=== PATIENT | male | born 1985 | race Caucasian/White ===

== ENCOUNTER 2025-04-12 13:30 | Observation (INO) ==
--- NOTE | 2025-04-12 14:38 | Emergency Department Note ---
History of Present Illness General Chief complaint: Back Injury/Pain Stated complaint: BACK PAIN Time Seen by Provider: 04/12/25 14:13 History of Present Illness Maximum Pain Intensity: 10 This is a 40-year-old male who presents to the emergency department via private vehicle with complaints of "back pain". The patient notes at last he bent down and when he stood up he began with pain in his back area. He points to the middle of the lumbar spine as location of discomfort that also radiate superiorly into the left just inferior to the left shoulder blade. It is worse with a deep breath, movement. It is somewhat better with rest. The patient denies any trauma or injury otherwise. No lower extremity weakness, bowel or bladder incontinence, numbness or tingling in the genital region. Patient denies any preceding or current illness. He denies any fevers, chills, nausea or vomiting. He denies any history of spine surgery. He denies any drug use. Allergies Allergy/AdvReac Type Severity Reaction Status Date / Time No Known Allergies Allergy Unverified 04/12/25 19:17 Past Med/Surg History Problem List (Updated 04/12/25 @ 19:27 by Michael Petty PA-C) Back pain (Acute) Social History Smoking Status: Never smoker Feels Safe at Home: Yes Review of Systems A total of 10 systems reviewed and were otherwise negative Physical Exam Vital Signs Vital Signs - 24 hr 04/12/25 13:39 04/12/25 14:56 04/12/25 16:00 Temperature 36.6 C Temperature Source Oral Pulse Rate 71 Pulse Rate [Finger] 59 L 55 L Respiratory Rate 18 16 17 Respiratory Effort / Characteristics Non-Labored Spontaneous Non-Labored Spontaneous Non-Labored Spontaneous Respiratory Depth Normal Normal Normal Respiratory Pattern Regular Blood Pressure 118/81 Blood Pressure [Right Arm] 125/85 121/78 Blood Pressure Mean 93 Blood Pressure Mean [Right Arm] 98 92 Blood Pressure Position [Right Arm] Lying Semi-fowlers Pulse Oximetry 98 99 97 Oxygen Delivery Method Room Air Room Air Room Air Sepsis Recent Fever Within 48 Hours No Sepsis New/Unexplained Change in Mental Status No Sepsis Action Taken by Nursing No Action Required VITAL SIGNS - Vital signs and nursing notes were reviewed. Stable and afebrile. GENERAL -40-year-old male appearing his stated age who is in no acute distress. Communicates well with provider and answers questions appropriately. SKIN - Without rashes. HEAD - NC/AT. EYES - PERRL with EOMI bilaterally. Sclera anicteric. EARS - No deformities of external structures noted on gross examination bilaterally. NOSE - Midline and without cyanosis. No epistaxis or purulent drainage noted. MOUTH/OROPHARYNX - Without perioral cyanosis. NECK - Neck with FROM. No nuchal rigidity. LUNGS - CTA CARDIAC - RRR ABDOMEN - Abdominal contour normal without pulsations or visible masses. BS normoactive all four quadrants. No tenderness, palpable masses, hepatosplenomegaly, or ascites noted. EXTREMITIES - No clubbing or peripheral cyanosis.+5/5 strength noted in UE/LE bilaterally. NEUROLOGIC - Cranial nerves II through XII grossly intact. Sensory intact to light touch throughout. Patellar reflexes +2/4. MSKthere is no reproducible tenderness to palpation overlying the C, T or L spinous processes or paraspinous musculature. PSYCH -alert, oriented and pleasant on examination Course Administered Medications Discontinued Medications Acetaminophen (Acetaminophen 500 Mg Tab) 500 mg PO NOW STA Stop: 04/12/25 15:22 Last Admin: 04/12/25 15:34 Dose: 500 mg Documented By: CRYSTAL Ketorolac Tromethamine (Ketorolac Tromethamine 15 Mg/Ml Vial) 10 mg IV NOW ONE Stop: 04/12/25 15:33 Last Admin: 04/12/25 15:39 Dose: 10 mg Documented By: CRYSTAL Lidocaine (Lidocaine 5% 1 Patch) 1 patch TD NOW STA Stop: 04/12/25 15:22 Last Admin: 04/12/25 15:33 Dose: 1 patch Documented By: CRYSTAL Morphine Sulfate (Morphine Sulfate 4 Mg/Ml 1 Ml Carp\\Vial) 4 mg IV NOW STA Stop: 04/12/25 14:49 Last Admin: 04/12/25 14:55 Dose: 4 mg Documented By: TNK Morphine Sulfate (Morphine Sulfate 2 Mg/Ml Carp) 2 mg IV NOW STA Stop: 04/12/25 17:28 Last Admin: 04/12/25 17:33 Dose: 2 mg Documented By: JAZMINE Morphine Sulfate (Morphine Sulfate 4 Mg/Ml 1 Ml Carp\\Vial) 4 mg IV NOW STA Stop: 04/12/25 18:47 Last Admin: 04/12/25 18:56 Dose: 4 mg Documented By: KATHRINE Ondansetron HCl (Ondansetron Inj 2 Mg/Ml 2 Ml Vial) 4 mg IV NOW STA Stop: 04/12/25 14:49 Last Admin: 04/12/25 14:55 Dose: 4 mg Documented By: DENZEL Medical Decision Making Laboratory Data 04/12/25 14:43 04/12/25 14:43 Lab Results 04/12/25 04/12/25 Range/Units 14:43 15:32 WBC 5.02 (4.8-10.8) K/ul RBC 5.30 (4.70-6.10) M/uL Hgb 15.6 (14.0-18.0) g/dl Hct 45.2 (42.0-52.0) % MCV 85.3 (80.0-100.0) fL MCH 29.4 (25.0-34.0) pg MCHC 34.5 (32.0-36.0) g/dL RDW Std Deviation 35.8 L (36.4-46.3) fL RDW Coeff of Esequiel 11.7 (11.5-14.5) % Plt Count 203 (130-400) K/uL MPV 9.0 L (9.4-12.4) fL Immature Gran % (Auto) 0.2 % Neut % (Auto) 59.7 % Lymph % (Auto) 28.9 % Dade % (Auto) 9.0 % Eos % (Auto) 1.8 % Baso % (Auto) 0.4 % Neut # (Auto) 3.00 (1.40-6.50) K/uL Lymph # (Auto) 1.45 (1.20-3.40) K/uL Dade # (Auto) 0.45 (0.11-0.59) K/uL Eos # (Auto) 0.09 (0.00-0.50) K/uL Baso # (Auto) 0.02 (0.00-0.20) K/uL Immature Gran # (Auto) 0.01 (0.01-0.20) K/uL ESR 8 (0-15) mm/hr PT 10.3 (9.0-12.0) Seconds INR 0.9 (0.9-1.1) APTT 26 (21-31) Seconds PTT Ratio 1.0 D-Dimer 450 (0-500) ug/L FEU Sodium 139 (136-145) mmol/L Potassium 4.2 (3.5-5.1) mmol/L Chloride 102 (98-107) mmol/L Carbon Dioxide 32 (21-32) mmol/L Anion Gap 5 (3-11) BUN 14 (6-23) mg/dl Creatinine 1.07 (0.6-1.4) mg/dl Est Cr Clr Drug Dosing 96.7 ml/min eGFR 91.09 BUN/Creatinine Ratio 13.1 (10-20) Glucose 80 (70-99(Fasting)) mg/dl Calcium 9.4 (8.6-10.3) mg/dl Total Bilirubin 0.7 (0.2-1.0) mg/dl AST 22 (13-39) U/L ALT 20 (7-52) U/L Alkaline Phosphatase 51 (34-104) U/L Troponin I High Sens 5.6 (0-20) pg/ml C-Reactive Protein < 0.50 (0-0.5) mg/dl Total Protein 7.4 (6.0-8.3) gm/dl Albumin 4.5 (3.4-5.0) gm/dl Globulin 2.9 (2.5-4.0) gm/dl Albumin/Globulin Ratio 1.6 (0.9-2) Urine Color Yellow Urine Appearance Clear (Clear) Urine pH 7.0 (4.5-7.5) Ur Specific [place] 1.014 (1.000-1.030) Urine Protein Negative (Negative) Urine Glucose (UA) Negative (Negative) Urine Ketones Negative (Negative) Urine Blood Negative (Negative) Urine Nitrite Negative (Negative) Urine Bilirubin Negative (Negative) Urine Urobilinogen Negative (Negative) Ur Leukocyte Esterase Negative (Negative) Urine Comment Imaging Data Radiologist's Impression: Chest X-Ray 04/12/25 16:54 Chest radiograph, one view History: Chest pain Comparison: None Findings: Single AP view of the chest performed. No focal consolidation or pleural effusion. No pneumothorax. The cardiomediastinal silhouette is within normal limits. Normal pulmonary vascularity. No evidence for lymphadenopathy. No visualized bony or soft tissue abnormality. Impression: Normal chest radiograph Electronically signed by Brady Díaz 04-12-2025 5:28 PM Orbit X-Ray 04/12/25 17:41 Clinical History: MRI clearance Technique: 3 views of the orbits are submitted for review. Findings: No definite sinus opacification is seen. No fracture is evident. No focal osseous lesion is identified. There are no radiopaque foreign bodies. Impression: No visible foreign body. No contraindication to MRI is seen Electronically signed by Ishan Trujillo 04-12-2025 6:06 PM MDM Narrative Patient was seen and evaluated as above in room D04b. Review was performed of triage nursing notes and vital signs. After obtaining a thorough history and physical examination the above work up was performed. Patient presents to us today for evaluation of low back pain. This is in the inferior aspect of the L- spine that radiates superiorly under the left scapula area. It is worse with movement but also deep breath. There is no chest pain or abdominal pain. No tearing sensation. Options of care were discussed with the patient. IV access was established. Labs were drawn. IV analgesics and antiemetics were ordered. Patient did require several antiemetics during his time here pending workup and evaluation. Labs reveal no leukocytosis or concerning anemia. Coags normal. D-dimer within normal range making PE less likely. There is no evidence of kidney or liver failure. Troponin is within normal range making ACS less likely noting duration of symptoms. ESR and CRP are within normal range. Urinalysis is negative. A chest x-ray was performed and per my interpretation was negative for acute process. Radiology report as above noting normal chest radiograph. CT scans of the thorax with contrast as well as abdomen and pelvis with contrast was reviewed both imaging and report as available from [facility]. This was dated 04/09/2025. Per radiologist findings are: 1. No acute traumatic process within the chest, abdomen or pelvis. A 4 mm nodule abutting left major fissure. Indeterminant but likely benign given the patient's age. Follow-up chest CT 1 year could be performed to ensure stability. Mildly distended bladder. The bladder wall thickening. With the patient having recent CT scans of the chest as well as abdomen/pelvis (for evaluation of these same symptoms) that were rather overall reassuring I do not believe that repeat CT scan imaging is needed here today. However, I do believe that further assessment of the patient's ongoing back pain is warranted via MRI assessment. As the patient does have a history of eye surgery, it was asked by the machining technician that we proceed with clearance via radiographic assessment of the orbits. These were obtained. No radiopaque foreign body or objects noted. Patient case signed out to JENIFER Jenkins at shift change, 1900 hrs. on 04/12/2025. This was pending MRI. At that time patient was medicated with IV analgesia and was at MRI obtaining imaging. I did asked that RN accompany the patient for continuous pulse ox monitoring while in the MRI scanner noting analgesics received here today. I did call to the MRI suite at 1919 and the patient was overall doing well. No issues. Please refer to further documentation regarding the patient's stay. GCS: 15 In the evaluation and treatment of this patient the following differential diagnoses were entertained: Cauda equina syndrome, cord compression, epidural hematoma, abscess, sprain, strain, spinal radiculopathy, among others. Impression & Plan Back pain Discharge Plan Visit Data Chief Complaint: Back Injury/Pain Stated Complaint: BACK PAIN ED Provider: Harpal Quintana ED Midlevel Provider: Tyesha Salinas Discharge Problem: Back pain Patient Disposition: Still a Patient Condition: Good Forms Stand Alone Forms: My [facility] Referrals Referrals: PCP,NO [Primary Care Provider] -
[2025-04-12] MEDS: MoRPHine SULFATE 4 MG/ML 1 ML CARP\\VIAL IV STA ×2 (14:55→18:56)
[2025-04-12] MEDS: ONDANSETRON INJ 2 MG/ML 2 ML VIAL IV STA (14:55)
[2025-04-12 15:01] LABS: Hematocrit (blood only) 45.2 % (42.0-52.0); Hemoglobin 15.6 g/dl (14.0-18.0); Immature Granulocytes # (auto) 0.01 K/uL (0.01-0.20); Immature Granulocytes % (auto) 0.2 %; Mean Corpuscular Hemoglobin 29.4 pg (25.0-34.0); Mean Corpuscular Volume 85.3 fL (80.0-100.0); Platelet Count 203 K/uL (130-400); RDW Standard Deviation 35.8 fL (36.4-46.3); Red Blood Count 5.30 M/uL (4.70-6.10); White Blood Count 5.02 K/ul (4.8-10.8)
[2025-04-12 15:30] LABS: Alanine Aminotransferase 20 U/L (7-52); Albumin Globulin Ratio 1.6 (0.9-2); Alkaline Phosphatase 51 U/L (34-104); Anion Gap 5 (3-11); Bilirubin,Total 0.7 mg/dl (0.2-1.0); Blood Urea Nitrogen 14 mg/dl (6-23); Calcium 9.4 mg/dl (8.6-10.3); Carbon Dioxide 32 mmol/L (21-32); Chloride 102 mmol/L (98-107); Creatinine Clr Calc Pharmacy 96.7 ml/min; Globulin 2.9 gm/dl (2.5-4.0); Glucose 80 mg/dl (70-99(Fasting)); Potassium 4.2 mmol/L (3.5-5.1); Sodium 139 mmol/L (136-145); Total Protein 7.4 gm/dl (6.0-8.3)
[2025-04-12] MEDS: LIDOCAINE 5% 1 PATCH TD STA (15:33)
[2025-04-12] MEDS: ACETAMINOPHEN 500 MG TAB PO STA (15:34)
[2025-04-12] MEDS: KETOROLAC TROMETHAMINE 15 MG/ML VIAL IV ONE (15:39)
[2025-04-12 15:56] LABS: INR 0.9 (0.9-1.1); Partial Thromboplastin Time 26 Seconds (21-31); Prothrombin Time 10.3 Seconds (9.0-12.0)
[2025-04-12 16:01] LABS: Appearance Urine Clear (Clear); Glucose Urine UA Negative (Negative)
--- NOTE | 2025-04-12 17:28 | XRay Report ---
Chest radiograph, one view History: Chest pain Comparison: None Findings: Single AP view of the chest performed. No focal consolidation or pleural effusion. No pneumothorax. The cardiomediastinal silhouette is within normal limits. Normal pulmonary vascularity. No evidence for lymphadenopathy. No visualized bony or soft tissue abnormality. Impression: Normal chest radiograph Electronically signed by Brady Díaz 04-12-2025 5:28 PM
[2025-04-12] MEDS: MoRPHine SULFATE 2 MG/ML CARP IV STA (17:33)
--- NOTE | 2025-04-12 17:56 | Electrocardiogram Report ---
Test Reason : Blood Pressure : */* mmHG Vent. Rate : 64 BPM Atrial Rate : 64 BPM P-R Int : 138 ms QRS Dur : 82 ms QT Int : 368 ms P-R-T Axes : 47 17 41 degrees QTcB Int : 379 ms Normal sinus rhythm Normal ECG No previous ECGs available Confirmed by Brady Hendricks ([id number]) on 04/12/2025 5:56:19 PM Referred By: REFERRED SELF Confirmed By: Brady Hendricks
--- NOTE | 2025-04-12 18:08 | XRay Report ---
Clinical History: MRI clearance Technique: 3 views of the orbits are submitted for review. Findings: No definite sinus opacification is seen. No fracture is evident. No focal osseous lesion is identified. There are no radiopaque foreign bodies. Impression: No visible foreign body. No contraindication to MRI is seen Electronically signed by Ishan Trujillo 04-12-2025 6:06 PM
[2025-04-12] MEDS: REMOVE LIDODERM PATCH SCH (20:19)
--- NOTE | 2025-04-12 21:52 | Magnetic Resonance Report ---
EXAM: MR thoracic spine wo con CLINICAL HISTORY: Mid and low back pain. TECHNIQUE: Multiplanar and multi-sequential MRI sequences of the thoracic spine without contrast administration were obtained. COMPARISON: None. FINDINGS: Intervertebral Discs: Normal height and signal intensity of the intervertebral discs. A few diffuse disc bulges are noted at T4-5 and T5-6 levels without any significant spinal canal or neural foraminal stenosis. No disc desiccation. Spinal Canal and Neural Foramina: The spinal canal is of normal caliber with no evidence of spinal stenosis. Neural foramina are patent bilaterally at all levels. No evidence of nerve root compression. There is no significant disc pathology. No exiting nerve root or spinal cord compression. Normal morphology of the ligamentum flavum. No arthropathy of the uncovertebral and zygapophyseal joints. No significant spinal canal and neural foraminal stenosis. Facet Joints: Normal appearance of the facet joints. No evidence of facet arthropathy or significant degenerative changes. Vertebrae: Normal alignment of the thoracic vertebrae. No fractures, lytic or sclerotic lesions. Normal bone marrow signal intensity. Modic type l changes are noted along the superior endplate of the T10 vertebral body. Mild degenerative changes are noted in the form of marginal osteophyte formation. [id number] analysis: C7-T1: No significant disc pathology. Normal ligamentum flava morphology, no arthropathy of the facet joints, and no significant spinal canal stenosis. T1-T2: No significant disc pathology. Normal ligamentum flava morphology, no arthropathy of the facet joints, and no significant spinal canal stenosis. T2-T3: No significant disc pathology. Normal ligamentum flava morphology, no arthropathy of the facet joints, and no significant spinal canal stenosis. T3-T4: No significant disc pathology. Normal ligamentum flava morphology, no arthropathy of the facet joints, and no significant spinal canal stenosis. T4-T5: A diffuse disc bulge of 1.4 mm is noted indenting the anterior thecal sac. Normal ligamentum flava morphology, no arthropathy of the facet joints, and no significant spinal canal or neural foraminal stenosis. T5-T6: A diffuse disc bulge of 1.9 mm is noted indenting the anterior thecal sac. Normal ligamentum flava morphology, no arthropathy of the facet joints, and no significant spinal canal or neural foraminal stenosis. T6-T7: No significant disc pathology. Normal ligamentum flava morphology, no arthropathy of the facet joints, and no significant spinal canal stenosis. T7-T8: Posterior central disc protrusion measuring 3 mm, indenting ventral cord aspect, with no neural foraminal compromise. Normal ligamentum flava morphology, no arthropathy of the facet joints, and no significant spinal canal stenosis. T8-T9: No significant disc pathology. Normal ligamentum flava morphology, no arthropathy of the facet joints, and no significant spinal canal stenosis. T9-T10: No significant disc pathology. Normal ligamentum flava morphology, no arthropathy of the facet joints, and no significant spinal canal stenosis. T10-T11: No significant disc pathology. Normal ligamentum flava morphology, no arthropathy of the facet joints, and no significant spinal canal stenosis. T11-T12: No significant disc pathology. Normal ligamentum flava morphology, no arthropathy of the facet joints, and no significant spinal canal stenosis. Spinal Cord: Normal signal intensity and morphology of the spinal cord. No evidence of intrinsic cord lesions, syrinx, or abnormal signal changes. Soft Tissues: Normal appearance of the rest of the paraspinal soft tissues. Minimal bilateral pleural effusion. Thoracic Kyphosis: Normal thoracic kyphosis without abnormal curvature. IMPRESSION: 1. No evidence of acute fracture or dislocation. 2. Mild thoracic spondylosis with a few disc bulges as described. No significant spinal canal or neural foraminal stenosis. 3. Posterior central disc protrusion measuring 3 mm, indenting ventral cord aspect, with no neural foraminal compromise. Clinical evaluation is further recommended. 4. Minimal bilateral pleural effusion. Electronically signed by Pool Harris 04-12-2025 9:52 PM
--- NOTE | 2025-04-12 22:14 | Magnetic Resonance Report ---
Exam(s): MRI L SPINE Without Contrast EXAM: MR Lumbar Spine Without Intravenous Contrast CLINICAL HISTORY: Reason for exam: mid and low back pain. TECHNIQUE: Magnetic resonance images of the lumbar spine without intravenous contrast in multiple planes. COMPARISON: No relevant prior studies available. FINDINGS: Vertebrae: Unremarkable. No acute fracture. Spinal cord: Unremarkable. Normal signal. Soft tissues: Unremarkable. DISCS/SPINAL CANAL/NEURAL FORAMINA: L1-L2: Unremarkable. No significant disc disease. No stenosis. L2-L3: Unremarkable. No significant disc disease. No stenosis. L3-L4: Unremarkable. No significant disc disease. No stenosis. L4-L5: Mild degenerative disc disease with disc bulge. No stenosis. L5-S1: Mild L5/S1 degenerative disc disease with disc bulge. No stenosis. IMPRESSION: 1. No fracture or dislocation 2. No disc herniation Electronically signed by: Blair Gonsales MD 04/12/25 22:13 PM
--- NOTE | 2025-04-12 22:38 | History & Physical Report ---
Date of Service April 12, 2025 Assessment & Plan (1) Back pain: Plan: Assessment and plan below following discussion of case with ED provider and reviewing patient history/pertinent normal/abnormal diagnostic test results. Intractable back pain Worsening constipation symptoms hx IBS constipation predominant Outpatient narcotic Rx contributory past tobacco abuse OBS Admit to MedSurg Analgesia Orthopedic spine consult Further management contingent on surgery eval Bowel regimen DVT prophylaxis. SCDs Full code Text document was generated using [employer] voice recognition software. It may contain grammatical or spelling errors. Kindly contact undersigned for clarification of any documentation item in question. History of Present Illness Chief Complaint: Worsening back pain Primary Care Provider: NO PCP History obtained from patient, family, and records. Medical history significant for IBS constipation predominant, past tobacco abuse. Patient recently relocated with family to [place] from [place] last month. Last week, patient experienced achy mid to low back pain more on the left side after bending over at home. Patient busy renovating home. Pain worsened with ambulation. No fever, no chills. No incontinence. No radiation to legs. SOB from back pain. Patient consulted [facility] ER few days ago. Unremarkable CT result as per patient. Patient prescribed oxycodone and muscle relaxant. Worsening discomfort despite compliance with medications. No bowel movement the last few days without unusual abdominal discomfort. Occasional bright red blood per rectum for some time now which he attributes to hemorrhoids. Intractable discomfort at the ER. 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 Allergies Allergy/AdvReac Type Severity Reaction Status Date / Time shellfish derived Allergy Intermediate Unknown Unverified 04/12/25 20:30 Home Medications Medication Instructions Recorded Confirmed Type cyclobenzaprine 5 mg tablet 5 mg PO Q8H PRN muscle spasms 04/12/25 04/12/25 History duloxetine 30 mg capsule,delayed 30 mg PO DAILY 04/12/25 04/12/25 History release ibuprofen 400 mg tablet 400 mg PO Q8H PRN Pain 04/12/25 04/12/25 History oxycodone 5 mg tablet 5 mg PO Q6H PRN Pain 04/12/25 04/12/25 History Past Med/Surg History Problem List (Updated 07/09/25 @ 19:27 by Michael Petty PA-C) Back pain (Acute) Social History Smoking Status: Never smoker Feels Safe at Home: Yes Review of Systems Review of Systems: As per HPI, all other systems reviewed and negative Physical Exam Physical Exam: GENERAL: Comfortable, pleasant, no respiratory distress SKIN: Normal color, warm HEENT: [place] palpebral conjunctivae, no ptosis, moist buccal mucosa NECK : Supple, no tenderness CHEST : CTA, no tenderness BACK : Mid back tenderness, limited SLR HEART : bradycardic, no obvious murmurs ABDOMEN: Some distention, nontender EXTREMITIES : No LE swelling/tenderness, palpable pulses, no other conspicuous deformities noted NEUROLOGIC : Coherent, no facial asymmetry, no other gross focality Results & Data Results & Data Vital Signs (Past 12 Hours) Vital Signs Temp Pulse Pulse Resp BP BP Pulse Ox 04/12/25 22:00 64 18 127/87 98 04/12/25 20:17 61 20 135/87 97 04/12/25 16:00 55 L 17 121/78 97 04/12/25 14:56 59 L 16 125/85 99 04/12/25 13:39 36.6 C 71 18 118/81 98 O2 Del Method 04/12/25 22:00 04/12/25 20:17 Room Air 04/12/25 16:00 Room Air 04/12/25 14:56 Room Air 04/12/25 13:39 Room Air Laboratory Results Laboratory Results WBC 5.02 K/ul (4.8-10.8) 04/12/25 14:43 RBC 5.30 M/uL (4.70-6.10) 04/12/25 14:43 Hgb 15.6 g/dl (14.0-18.0) 04/12/25 14:43 Hct 45.2 % (42.0-52.0) 04/12/25 14:43 MCV 85.3 fL (80.0-100.0) 04/12/25 14:43 MCH 29.4 pg (25.0-34.0) 04/12/25 14:43 MCHC 34.5 g/dL (32.0-36.0) 04/12/25 14:43 RDW Std Deviation 35.8 fL (36.4-46.3) L 04/12/25 14:43 RDW Coeff of Esequiel 11.7 % (11.5-14.5) 04/12/25 14:43 Plt Count 203 K/uL (130-400) 04/12/25 14:43 MPV 9.0 fL (9.4-12.4) L 04/12/25 14:43 Immature Gran % (Auto) 0.2 % 04/12/25 14:43 Neut % (Auto) 59.7 % 04/12/25 14:43 Lymph % (Auto) 28.9 % 04/12/25 14:43 Travis % (Auto) 9.0 % 04/12/25 14:43 Eos % (Auto) 1.8 % 04/12/25 14:43 Baso % (Auto) 0.4 % 04/12/25 14:43 Neut # (Auto) 3.00 K/uL (1.40-6.50) 04/12/25 14:43 Lymph # (Auto) 1.45 K/uL (1.20-3.40) 04/12/25 14:43 Travis # (Auto) 0.45 K/uL (0.11-0.59) 04/12/25 14:43 Eos # (Auto) 0.09 K/uL (0.00-0.50) 04/12/25 14:43 Baso # (Auto) 0.02 K/uL (0.00-0.20) 04/12/25 14:43 Immature Gran # (Auto) 0.01 K/uL (0.01-0.20) 04/12/25 14:43 ESR 8 mm/hr (0-15) 04/12/25 14:43 PT 10.3 Seconds (9.0-12.0) 04/12/25 14:43 INR 0.9 (0.9-1.1) 04/12/25 14:43 APTT 26 Seconds (21-31) 04/12/25 14:43 PTT Ratio 1.0 04/12/25 14:43 D-Dimer 450 ug/L FEU (0-500) 04/12/25 14:43 Sodium 139 mmol/L (136-145) 04/12/25 14:43 Potassium 4.2 mmol/L (3.5-5.1) 04/12/25 14:43 Chloride 102 mmol/L (98-107) 04/12/25 14:43 Carbon Dioxide 32 mmol/L (21-32) 04/12/25 14:43 Anion Gap 5 (3-11) 04/12/25 14:43 BUN 14 mg/dl (6-23) 04/12/25 14:43 Creatinine 1.07 mg/dl (0.6-1.4) 04/12/25 14:43 Est Cr Clr Drug Dosing 96.7 ml/min 04/12/25 14:43 eGFR 91.09 04/12/25 14:43 BUN/Creatinine Ratio 13.1 (10-20) 04/12/25 14:43 Glucose 80 mg/dl (70-99(Fasting)) 04/12/25 14:43 Calcium 9.4 mg/dl (8.6-10.3) 04/12/25 14:43 Total Bilirubin 0.7 mg/dl (0.2-1.0) 04/12/25 14:43 AST 22 U/L (13-39) 04/12/25 14:43 ALT 20 U/L (7-52) 04/12/25 14:43 Alkaline Phosphatase 51 U/L (34-104) 04/12/25 14:43 Troponin I High Sens 5.6 pg/ml (0-20) 04/12/25 14:43 C-Reactive Protein < 0.50 mg/dl (0-0.5) 04/12/25 14:43 Total Protein 7.4 gm/dl (6.0-8.3) 04/12/25 14:43 Albumin 4.5 gm/dl (3.4-5.0) 04/12/25 14:43 Globulin 2.9 gm/dl (2.5-4.0) 04/12/25 14:43 Albumin/Globulin Ratio 1.6 (0.9-2) 04/12/25 14:43 Urine Color Yellow 04/12/25 15:32 Urine Appearance Clear (Clear) 04/12/25 15:32 Urine pH 7.0 (4.5-7.5) 04/12/25 15:32 Ur Specific [place] 1.014 (1.000-1.030) 04/12/25 15:32 Urine Protein Negative (Negative) 04/12/25 15:32 Urine Glucose (UA) Negative (Negative) 04/12/25 15:32 Urine Ketones Negative (Negative) 04/12/25 15:32 Urine Blood Negative (Negative) 04/12/25 15:32 Urine Nitrite Negative (Negative) 04/12/25 15:32 Urine Bilirubin Negative (Negative) 04/12/25 15:32 Urine Urobilinogen Negative (Negative) 04/12/25 15:32 Ur Leukocyte Esterase Negative (Negative) 04/12/25 15:32 Urine Comment 04/12/25 15:32 Impressions Chest X-Ray 04/12/25 16:54 Chest radiograph, one view History: Chest pain Comparison: None Findings: Single AP view of the chest performed. No focal consolidation or pleural effusion. No pneumothorax. The cardiomediastinal silhouette is within normal limits. Normal pulmonary vascularity. No evidence for lymphadenopathy. No visualized bony or soft tissue abnormality. Impression: Normal chest radiograph Electronically signed by Brady Díaz 04-12-2025 5:28 PM Lumbar Spine MRI 04/12/25 16:55 Exam(s): MRI L SPINE Without Contrast EXAM: MR Lumbar Spine Without Intravenous Contrast CLINICAL HISTORY: Reason for exam: mid and low back pain. TECHNIQUE: Magnetic resonance images of the lumbar spine without intravenous contrast in multiple planes. COMPARISON: No relevant prior studies available. FINDINGS: Vertebrae: Unremarkable. No acute fracture. Spinal cord: Unremarkable. Normal signal. Soft tissues: Unremarkable. DISCS/SPINAL CANAL/NEURAL FORAMINA: L1-L2: Unremarkable. No significant disc disease. No stenosis. L2-L3: Unremarkable. No significant disc disease. No stenosis. L3-L4: Unremarkable. No significant disc disease. No stenosis. L4-L5: Mild degenerative disc disease with disc bulge. No stenosis. L5-S1: Mild L5/S1 degenerative disc disease with disc bulge. No stenosis. IMPRESSION: 1. No fracture or dislocation 2. No disc herniation Electronically signed by: Blair Gonsales MD 04/12/25 22:13 PM Thoracic Spine MRI 04/12/25 16:55 EXAM: MR thoracic spine wo con CLINICAL HISTORY: Mid and low back pain. TECHNIQUE: Multiplanar and multi-sequential MRI sequences of the thoracic spine without contrast administration were obtained. COMPARISON: None. FINDINGS: Intervertebral Discs: Normal height and signal intensity of the intervertebral discs. A few diffuse disc bulges are noted at T4-5 and T5-6 levels without any significant spinal canal or neural foraminal stenosis. No disc desiccation. Spinal Canal and Neural Foramina: The spinal canal is of normal caliber with no evidence of spinal stenosis. Neural foramina are patent bilaterally at all levels. No evidence of nerve root compression. There is no significant disc pathology. No exiting nerve root or spinal cord compression. Normal morphology of the ligamentum flavum. No arthropathy of the uncovertebral and zygapophyseal joints. No significant spinal canal and neural foraminal stenosis. Facet Joints: Normal appearance of the facet joints. No evidence of facet arthropathy or significant degenerative changes. Vertebrae: Normal alignment of the thoracic vertebrae. No fractures, lytic or sclerotic lesions. Normal bone marrow signal intensity. Modic type l changes are noted along the superior endplate of the T10 vertebral body. Mild degenerative changes are noted in the form of marginal osteophyte formation. Iptna-gv-[id number] analysis: C7-T1: No significant disc pathology. Normal ligamentum flava morphology, no arthropathy of the facet joints, and no significant spinal canal stenosis. T1-T2: No significant disc pathology. Normal ligamentum flava morphology, no arthropathy of the facet joints, and no significant spinal canal stenosis. T2-T3: No significant disc pathology. Normal ligamentum flava morphology, no arthropathy of the facet joints, and no significant spinal canal stenosis. T3-T4: No significant disc pathology. Normal ligamentum flava morphology, no arthropathy of the facet joints, and no significant spinal canal stenosis. T4-T5: A diffuse disc bulge of 1.4 mm is noted indenting the anterior thecal sac. Normal ligamentum flava morphology, no arthropathy of the facet joints, and no significant spinal canal or neural foraminal stenosis. T5-T6: A diffuse disc bulge of 1.9 mm is noted indenting the anterior thecal sac. Normal ligamentum flava morphology, no arthropathy of the facet joints, and no significant spinal canal or neural foraminal stenosis. T6-T7: No significant disc pathology. Normal ligamentum flava morphology, no arthropathy of the facet joints, and no significant spinal canal stenosis. T7-T8: Posterior central disc protrusion measuring 3 mm, indenting ventral cord aspect, with no neural foraminal compromise. Normal ligamentum flava morphology, no arthropathy of the facet joints, and no significant spinal canal stenosis. T8-T9: No significant disc pathology. Normal ligamentum flava morphology, no arthropathy of the facet joints, and no significant spinal canal stenosis. T9-T10: No significant disc pathology. Normal ligamentum flava morphology, no arthropathy of the facet joints, and no significant spinal canal stenosis. T10-T11: No significant disc pathology. Normal ligamentum flava morphology, no arthropathy of the facet joints, and no significant spinal canal stenosis. T11-T12: No significant disc pathology. Normal ligamentum flava morphology, no arthropathy of the facet joints, and no significant spinal canal stenosis. Spinal Cord: Normal signal intensity and morphology of the spinal cord. No evidence of intrinsic cord lesions, syrinx, or abnormal signal changes. Soft Tissues: Normal appearance of the rest of the paraspinal soft tissues. Minimal bilateral pleural effusion. Thoracic Kyphosis: Normal thoracic kyphosis without abnormal curvature. IMPRESSION: 1. No evidence of acute fracture or dislocation. 2. Mild thoracic spondylosis with a few disc bulges as described. No significant spinal canal or neural foraminal stenosis. 3. Posterior central disc protrusion measuring 3 mm, indenting ventral cord aspect, with no neural foraminal compromise. Clinical evaluation is further recommended. 4. Minimal bilateral pleural effusion. Electronically signed by Pool Harris 04-12-2025 9:52 PM Orbit X-Ray 04/12/25 17:41 Clinical History: MRI clearance Technique: 3 views of the orbits are submitted for review. Findings: No definite sinus opacification is seen. No fracture is evident. No focal osseous lesion is identified. There are no radiopaque foreign bodies. Impression: No visible foreign body. No contraindication to MRI is seen Electronically signed by Ishan Trujillo 04-12-2025 6:06 PM Diagnostic Findings EKG as per my interpretation :Rate 65, NSR, normal axis, no ischemia bradycardic
[2025-04-12] MEDS ORDERED: ACETAMINOPHEN 325 MG TAB PO PRN (22:39)
--- NOTE | 2025-04-12 23:47 | Emergency Department Note ---
ED Visit Note The patient was signed out to me by Michael Petty PA-C pending MRI results. I did give the patient 1 dose of fentanyl 25 mcg and had improvement in pain and discomfort. The MRI of the lumbar spine results did show no fracture or dislocation and no disc herniation. The MRI of the thoracic spine showed no evidence of acute fracture or dislocation, mild thoracic spondylosis with a few disc bulges as described in the report. There is also posterior central disc protrusion measuring 3 mm, indenting the ventral cord aspect, with no neural forminal compromise. It also showed minimal bilateral pleural effusion. I discussed these findings with the patient. We discussed his failure of outpatient management of his pain and the potential need for admission to the hospital. He called his via cell phone and the 3 of us discussed the options of outpatient management versus inpatient treatment. The patient and his did decide that he has already failed outpatient management and would like to be admitted to the hospital. I spoke with Dr. Lo who accepted the patient for admission to the hospital. .
[2025-04-13] MEDS: POLYETHYLENE (MIRALAX) 17 GM PACK PO STA (00:49)
[2025-04-13] MEDS: DOCUSATE SODIUM/SENNA 50/8.6MG TAB PO SCH ×2 (00:49→09:18)
[2025-04-13 01:51] VITALS: RESP 16
[2025-04-13] MEDS: HYDROmorphone INJ 0.5 MG/0.5 ML SYR IV PRN (01:55)
[2025-04-13] MEDS: KETOROLAC TROMETHAMINE 15 MG/ML VIAL IV ONE (01:56)
[2025-04-13] MEDS: POLYETHYLENE (MIRALAX) 17 GM PACK PO PRN (07:31)
[2025-04-13] MEDS: POLYETHYLENE (MIRALAX) 17 GM PACK PO SCH (09:08)
[2025-04-13] MEDS: MAGNESIUM CITRATE 296 ML/BTL PO STA (09:18)
[2025-04-13] MEDS: ACETAMINOPHEN 500 MG TAB PO SCH (09:18)
[2025-04-13] MEDS: GABAPENTIN 100 MG CAP PO SCH (09:20)
[2025-04-13] MEDS: LIDOCAINE 5% 1 PATCH TD SCH (09:21)
[2025-04-13] MEDS: CeleBREX 200 MG CAP PO SCH (09:34)
[2025-04-13] MEDS: LORazepam 0.5 MG TAB PO PRN (09:36)
--- NOTE | 2025-04-13 09:47 | Orthopedic Consultation ---
Date of Service April 13, 2025 Assessment & Plan (1) Back pain: * Case/imaging reviewed and discussed with Dr Fair * No significant imaging findings of spinal cord stenosis, bony abnormality or malalignment. * Symptoms and exam consistent with paraspinal spasm * Recommend conservative management via medication, PT/OT, gentle stretching * Consider scheduled Tylenol, anti-inflammatory, muscle relaxer. * Bowel regiment * Discussed possible steroid taper with patient, however no radicular symptoms * Disposition: Anticipate home pending improvement with medication * Daily treatment: Physical Therapy/ Occupational Therapy per protocol * Weight bearing status: As tolerated * Pain control * Remainder care per primary team * Will continue to follow Patient seen and examined, mostly complaining of midthoracic pain, neurologically intact. MRI revealing some limited changes involving some the thoracic disc with minimal disc protrusion, similar for the lower lumbar spine. Recommend appropriate pain medications, follow-up in 2 weeks in office. History of Present Illness Reason for Consultation: . Back pain, spasm Requesting Physician: . Attending Physician: Mickey Tabares DO .Patient is a 40y/o male with back pain and spasm. No significant PMH. Presents to hospital with midlow back pain ongoing for approximately 10 days. 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 States that it was not significant weight and does not recall specific injury, but since that lifting/twisting movement has had persistent mid to low back pain and spasm. States the pain is low-grade at rest but increases with certain movements, most significantly with twisting movement, straining. Current workup including CT thoracic/lumbar spine at OSH, MRI thoracic/lumbar spine yesterday demonstrates no acute fracture or dislocation, minimal multilevel disc bulge without stenosis. Orthopedics consulted for management recommendations. At time of exam patient lying comfortably in bed, no acute distress. Reports mild pain throughout the left-sided mid to low back at rest but that this increases with certain movements, most particularly twisting motions, bending, straining for bowel movements. Denies tingling or numbness of bilateral upper or bilateral lower extremities. Denies similar symptoms in the past. Allergies Allergy/AdvReac Type Severity Reaction Status Date / Time shellfish derived Allergy Intermediate Unknown Unverified 04/12/25 20:30 Home Medications Medication Instructions Recorded Confirmed Type cyclobenzaprine 5 mg tablet 5 mg PO Q8H PRN muscle spasms 04/12/25 04/12/25 History duloxetine 30 mg capsule,delayed 30 mg PO DAILY 04/12/25 04/12/25 History release ibuprofen 400 mg tablet 400 mg PO Q8H PRN Pain 04/12/25 04/12/25 History oxycodone 5 mg tablet 5 mg PO Q6H PRN Pain 04/12/25 04/12/25 History Past Med/Surg History Problem List (Updated 04/13/25 @ 12:26 by Mickey Tabares, ) Anxiety Irritable bowel syndrome with constipation Bulge of 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 Preferred Language: Emirati Communication Ability: Effective Aerologist Required: No Beliefs That Will Affect Care: None Current Living Situation: Family Current Living Situation Comment: and children. Other Information That Helps Us Care for You: No Feels Safe at Home: Yes Safety Concerns: Feels Safe At This Time Assistive Devices: None Review of Systems All systems reviewed & are unremarkable except as noted in HPI & below. Physical Exam . * General: Alert and oriented, no acute distress * Constitutional: well-developed, well-nourished. * Respiratory: Normal respiratory effort, no distress * Gastrointestinal: No tenderness to palpation, no rigidity or guarding. * Skin: No rash or lesion. * Neurologic: Grossly normal * Musculoskeletal: Thoracic and lumbar regions without obvious deformity developing skin changes. No other abnormality of the bilateral lower extremities noted. Mild TTP diffusely throughout the left sided thoracic and lumbar paraspinal musculature. No specific tenderness of the thoracic or lumbar spinous processes, no tenderness throughout the bilateral buttock region, no other tenderness throughout the upper or lower extremities. AROM spine flexion and extension intact however limited secondary to pain and stiffness. AROM hip flexion, knee extension, ankle dorsiflexion intact, strength 5/5 bilaterally. Sensation intact plantar/dorsal foot bilaterally. Brisk capillary refill. Results & Data Results & Data Laboratory Results . 04/12/25 04/12/25 15:32 14:43 WBC 5.02 RBC 5.30 Hgb 15.6 Hct 45.2 MCV 85.3 MCH 29.4 MCHC 34.5 RDW Std Deviation 35.8 L RDW Coeff of Esequiel 11.7 Plt Count 203 MPV 9.0 L Immature Gran % (Auto) 0.2 Neut % (Auto) 59.7 Lymph % (Auto) 28.9 Floyd % (Auto) 9.0 Eos % (Auto) 1.8 Baso % (Auto) 0.4 Neut # (Auto) 3.00 Lymph # (Auto) 1.45 Floyd # (Auto) 0.45 Eos # (Auto) 0.09 Baso # (Auto) 0.02 Immature Gran # (Auto) 0.01 ESR 8 PT 10.3 INR 0.9 APTT 26 PTT Ratio 1.0 D-Dimer 450 Sodium 139 Potassium 4.2 Chloride 102 Carbon Dioxide 32 Anion Gap 5 BUN 14 Creatinine 1.07 Est Cr Clr Drug Dosing 96.7 eGFR 91.09 BUN/Creatinine Ratio 13.1 Glucose 80 Calcium 9.4 Total Bilirubin 0.7 AST 22 ALT 20 Alkaline Phosphatase 51 Troponin I High Sens 5.6 C-Reactive Protein < 0.50 Total Protein 7.4 Albumin 4.5 Globulin 2.9 Albumin/Globulin Ratio 1.6 Urine Color Yellow Urine Appearance Clear Urine pH 7.0 Ur Specific [place] 1.014 Urine Protein Negative Urine Glucose (UA) Negative Urine Ketones Negative Urine Blood Negative Urine Nitrite Negative Urine Bilirubin Negative Urine Urobilinogen Negative Ur Leukocyte Esterase Negative Urine Comment Diagnostic Findings . Chest X-Ray 04/12/25 16:54 Chest radiograph, one view History: Chest pain Comparison: None Findings: Single AP view of the chest performed. No focal consolidation or pleural effusion. No pneumothorax. The cardiomediastinal silhouette is within normal limits. Normal pulmonary vascularity. No evidence for lymphadenopathy. No visualized bony or soft tissue abnormality. Impression: Normal chest radiograph Electronically signed by Brady Díaz 04-12-2025 5:28 PM Lumbar Spine MRI 04/12/25 16:55 Exam(s): MRI L SPINE Without Contrast EXAM: MR Lumbar Spine Without Intravenous Contrast CLINICAL HISTORY: Reason for exam: mid and low back pain. TECHNIQUE: Magnetic resonance images of the lumbar spine without intravenous contrast in multiple planes. COMPARISON: No relevant prior studies available. FINDINGS: Vertebrae: Unremarkable. No acute fracture. Spinal cord: Unremarkable. Normal signal. Soft tissues: Unremarkable. DISCS/SPINAL CANAL/NEURAL FORAMINA: L1-L2: Unremarkable. No significant disc disease. No stenosis. L2-L3: Unremarkable. No significant disc disease. No stenosis. L3-L4: Unremarkable. No significant disc disease. No stenosis. L4-L5: Mild degenerative disc disease with disc bulge. No stenosis. L5-S1: Mild L5/S1 degenerative disc disease with disc bulge. No stenosis. IMPRESSION: 1. No fracture or dislocation 2. No disc herniation Electronically signed by: Blair Gonsales MD 04/12/25 22:13 PM Thoracic Spine MRI 04/12/25 16:55 EXAM: MR thoracic spine wo con CLINICAL HISTORY: Mid and low back pain. TECHNIQUE: Multiplanar and multi-sequential MRI sequences of the thoracic spine without contrast administration were obtained. COMPARISON: None. FINDINGS: Intervertebral Discs: Normal height and signal intensity of the intervertebral discs. A few diffuse disc bulges are noted at T4-5 and T5-6 levels without any significant spinal canal or neural foraminal stenosis. No disc desiccation. Spinal Canal and Neural Foramina: The spinal canal is of normal caliber with no evidence of spinal stenosis. Neural foramina are patent bilaterally at all levels. No evidence of nerve root compression. There is no significant disc pathology. No exiting nerve root or spinal cord compression. Normal morphology of the ligamentum flavum. No arthropathy of the uncovertebral and zygapophyseal joints. No significant spinal canal and neural foraminal stenosis. Facet Joints: Normal appearance of the facet joints. No evidence of facet arthropathy or significant degenerative changes. Vertebrae: Normal alignment of the thoracic vertebrae. No fractures, lytic or sclerotic lesions. Normal bone marrow signal intensity. Modic type l changes are noted along the superior endplate of the T10 vertebral body. Mild degenerative changes are noted in the form of marginal osteophyte formation. [id number] analysis: C7-T1: No significant disc pathology. Normal ligamentum flava morphology, no arthropathy of the facet joints, and no significant spinal canal stenosis. T1-T2: No significant disc pathology. Normal ligamentum flava morphology, no arthropathy of the facet joints, and no significant spinal canal stenosis. T2-T3: No significant disc pathology. Normal ligamentum flava morphology, no arthropathy of the facet joints, and no significant spinal canal stenosis. T3-T4: No significant disc pathology. Normal ligamentum flava morphology, no arthropathy of the facet joints, and no significant spinal canal stenosis. T4-T5: A diffuse disc bulge of 1.4 mm is noted indenting the anterior thecal sac. Normal ligamentum flava morphology, no arthropathy of the facet joints, and no significant spinal canal or neural foraminal stenosis. T5-T6: A diffuse disc bulge of 1.9 mm is noted indenting the anterior thecal sac. Normal ligamentum flava morphology, no arthropathy of the facet joints, and no significant spinal canal or neural foraminal stenosis. T6-T7: No significant disc pathology. Normal ligamentum flava morphology, no arthropathy of the facet joints, and no significant spinal canal stenosis. T7-T8: Posterior central disc protrusion measuring 3 mm, indenting ventral cord aspect, with no neural foraminal compromise. Normal ligamentum flava morphology, no arthropathy of the facet joints, and no significant spinal canal stenosis. T8-T9: No significant disc pathology. Normal ligamentum flava morphology, no arthropathy of the facet joints, and no significant spinal canal stenosis. T9-T10: No significant disc pathology. Normal ligamentum flava morphology, no arthropathy of the facet joints, and no significant spinal canal stenosis. T10-T11: No significant disc pathology. Normal ligamentum flava morphology, no arthropathy of the facet joints, and no significant spinal canal stenosis. T11-T12: No significant disc pathology. Normal ligamentum flava morphology, no arthropathy of the facet joints, and no significant spinal canal stenosis. Spinal Cord: Normal signal intensity and morphology of the spinal cord. No evidence of intrinsic cord lesions, syrinx, or abnormal signal changes. Soft Tissues: Normal appearance of the rest of the paraspinal soft tissues. Minimal bilateral pleural effusion. Thoracic Kyphosis: Normal thoracic kyphosis without abnormal curvature. IMPRESSION: 1. No evidence of acute fracture or dislocation. 2. Mild thoracic spondylosis with a few disc bulges as described. No significant spinal canal or neural foraminal stenosis. 3. Posterior central disc protrusion measuring 3 mm, indenting ventral cord aspect, with no neural foraminal compromise. Clinical evaluation is further recommended. 4. Minimal bilateral pleural effusion. Electronically signed by Pool Harris 04-12-2025 9:52 PM Orbit X-Ray 04/12/25 17:41 Clinical History: MRI clearance Technique: 3 views of the orbits are submitted for review. Findings: No definite sinus opacification is seen. No fracture is evident. No focal osseous lesion is identified. There are no radiopaque foreign bodies. Impression: No visible foreign body. No contraindication to MRI is seen Electronically signed by Ishan Trujillo 04-12-2025 6:06 PM PG Care Time/CCT Total # of Minutes Spent Total Time Spent with Patient: Total time spent is greater than 50% in coordination of care (as documented) at patient's floor/unit and/or counseling patient: [place] [address] IN/OBS CONSULT LVL 3,45M Patient Type New Medical Decision Making Straight Forward Diagnoses Back pain M54.9
[2025-04-13] MEDS: ONDANSETRON INJ 2 MG/ML 2 ML VIAL IV PRN (10:56)
--- NOTE | 2025-04-13 12:28 | Hospitalist Progress Note ---
Date of Service April 13, 2025 Assessment & Plan (1) Strain of thoracic spine: (2) Lumbar spine strain: (3) Muscle spasm of back: (4) Bulge of thoracic disc without myelopathy: (5) Irritable bowel syndrome with constipation: (6) Anxiety: Plan Patient 40-year-old gentleman with acute strain sprain of his thoracic and lumbar spine in the setting of recent manual labor restoring a house. Patient also with exacerbation of his constipation with the recent use of pain medications dispensed by other medical facility for his back pain. Spent a great deal time with the patient and with orthopedic spine at the bedside explaining her diagnosis. Reassured him that MRIs did not show any impingement on the spinal cord, significant stenosis or anything that would need surgical intervention. Described and recommended a course of scheduled medications as well as as needed medications to manage his symptoms. Also discussed with him a plan for bowel regimen in the setting of his chronic constipation that will only be exacerbated by his use of pain medications. Will schedule Tylenol 3 times daily Schedule Zanaflex 3 times daily Schedule Celebrex 2 times daily Schedule gabapentin 3 times daily. Schedule lidocaine patch. Use oxycodone 5 to 10 mg as needed for breakthrough pain Mag citrate as well as Dulcolax suppository to help with his constipation and induce bowel movement today. Scheduled MiraLAX and senna. PT/OT eval Anticipate patient will be able to be discharged home tomorrow with ongoing outpatient therapy and oral medications. Admission and Anticipated Discharge Date Admission Date: April 12, 2025 Subjective Patient extremely anxious about having recurrent back spasms. Extremely worried that this will recur when he has a bowel movement. Reports that he has chronic constipation that is exacerbated with the pain medications. Orthospine at the bedside as well Physical Exam 2 Physical Exam: Constitutional: Alert, nontoxic Lungs: No respiratory distress CV: Regular Neuro: No focal deficits Psych: Cooperative, anxious Results & Data Results & Data Vital Signs (Past 12 Hours) Vital Signs Temp Pulse Resp BP BP Pulse Ox O2 Del Method 04/13/25 07:13 36.6 C 61 16 99/64 L 97 Room Air 04/13/25 00:30 36.9 C 58 L 16 116/82 97 Room Air 04/13/25 00:30 36.6 C 58 L 16 116/82 97 Room Air Diagnostic Findings Reviewed imaging, laboratory and diagnostic studies. Pertinent findings as below. Reviewed MRI of thoracic and lumbar spine. Some disc bulging in the thoracic spine but no significant cord impingement. No fractures
[2025-04-13] MEDS: REMOVE LIDODERM PATCH SCH (19:48)
[2025-04-13] MEDS: DICYCLOMINE HCL 10 MG CAP PO PRN (19:55)
[2025-04-13] MEDS: HYDROCORTISONE ACETATE 25 MG SUPP PR PRN (19:56)
[2025-04-13] MEDS ORDERED: LIDOCAINE 5% 1 PATCH TD SCH (21:00)
[2025-04-14 07:04] VITALS: BP 92/55; PULSE 52; TEMP 97.5; O2SAT 96
--- NOTE | 2025-04-14 08:46 | Orthopedic Progress Note ---
Date of Service April 14, 2025 Subjective Patient seen and examined, he notes improvement of symptoms since yesterday, pain mostly in the mid thoracic spine region. Recommend continued appropriate medications, follow-up in 2 weeks, recommended lifting restrictions when the patient returns home. Review of Systems All systems reviewed & are unremarkable except as noted in HPI & below. Physical Exam . Results & Data Results & Data Laboratory Results . Diagnostic Findings . PG Care Time/CCT Total # of Minutes Spent Total Time Spent with Patient: Total time spent is greater than 50% in coordination of care (as documented) at patient's floor/unit and/or counseling patient: Coding Level of Care Code 60194 SUB INP/OBS CARE 1/25MIN Medical Decision Making Straight Forward
--- NOTE | 2025-04-14 12:58 | Discharge Summary ---
Date of Service April 14, 2025 Admission HPI Per Admitting Provider History obtained from patient, family, and records. Medical history significant for IBS constipation predominant, past tobacco abuse. Patient recently relocated with family to [place] from [place] last month. Last week, patient experienced achy mid to low back pain more on the left side after bending over at home. Patient busy renovating home. Pain worsened with ambulation. No fever, no chills. No incontinence. No radiation to legs. SOB from back pain. Patient consulted [facility] ER few days ago. Unremarkable CT result as per patient. Patient prescribed oxycodone and muscle relaxant. Worsening discomfort despite compliance with medications. No bowel movement the last few days without unusual abdominal discomfort. Occasional bright red blood per rectum for some time now which he attributes to hemorrhoids. Intractable discomfort at the ER. 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 Admission Exam Per Admitting Provider GENERAL: Comfortable, pleasant, no respiratory distress SKIN: Normal color, warm HEENT: [place] palpebral conjunctivae, no ptosis, moist buccal mucosa NECK : Supple, no tenderness CHEST : CTA, no tenderness BACK : Mid back tenderness, limited SLR HEART : bradycardic, no obvious murmurs ABDOMEN: Some distention, nontender EXTREMITIES : No LE swelling/tenderness, palpable pulses, no other conspicuous deformities noted NEUROLOGIC : Coherent, no facial asymmetry, no other gross focality Principal Diagnosis Muscle spasm Lumbar and thoracic spine strain Discharge Exam Constitutional + well hydrated; no acute distress Eyes PERRL, conjunctivae normal, anicteric sclerae ENMT external ear and nose normal, oropharynx normal Respiratory normal respiratory effort, lungs clear to auscultation Cardiovascular Rate/Rhythm: regular rate and regular rhythm Gastrointestinal (Abdomen) normal bowel sounds, soft, nontender, no hepatosplenomegaly Musculoskeletal Tenderness over muscles of mid and lower back Neurologic PERRL, EOMI, accommodation nl, no face palsy, no dysarthria Psychiatric A+Ox3, euthymic affect Discharge Data Allergies Allergy/AdvReac Type Severity Reaction Status Date / Time shellfish derived Allergy Intermediate Unknown Unverified 04/12/25 20:30 Consultations 04/12/25 23:22 Consult Orthopedic Spine Surgery Routine Ordered Studies 04/12/25 16:55 MR lumbar spine wo con Stat MRI Thoracic [MR thoracic spine wo con] Stat Hospital Course (1) Strain of thoracic spine: (2) Lumbar spine strain: (3) Muscle spasm of back: (4) Bulge of thoracic disc without myelopathy: (5) Irritable bowel syndrome with constipation: (6) Anxiety: Plan 40-year-old gentleman with acute strain sprain of his thoracic and lumbar spine in the setting of recent manual labor restoring a house. Patient also with exacerbation of his constipation with the recent use of pain medications dispensed by other medical facility for his back pain. Had gone to [facility] ER few days ago and pain had worsened despite treatment Thoracic and Lumbar MRI did not show any acute fracture or dislocation Abnormalities noted include posterior central disc protrusion measuring 3mm indenting ventral cord aspect, with no neural foraminal compromise He was evaluated by Ortho spine surgeon and no intervention recommended Pain was controlled with cerebrex, tizanidine, tylenol, gabapentin and prn oxycodone. Patient reports pain is significantly improved Educated patient on risks of opioid use including overdose/abuse potential and other side effects and to use sparingly PDMP reviewed Patient to follow up with Ortho spine surgery and PCP Total Time Total Time Spent Total Time Spent (In Minutes): 35 Total Time Includes: Examination of the Patient, Discharge Planning and Medication Reconciliation Discharge Plan Discharge Items Patient Disposition: Home - Self-Care Reason For Visit: BACK PAIN Discharge Diagnosis: Muscle spasm Lumbar and thoracic spine strain Condition on Discharge: Good Activity: As commented below Activity Comment: Limit lifting as discussed Non-emergency contact: Primary Care Provider and Surgeon Call non-emergency contact if: you have any medication questions and your symptoms worsen Follow-up/Referrals: Steff Naik CRNP [Nurse Practitioner] - 04/18/25 3:00 pm Pollo Fair MD [Surgeon] - 04/27/25 9:20 am Diet: Regular Addtl Attending Provider Instructions: Mr Madera You were hospitalized and managed for the above listed diagnoses. You are being discharged home. Please ensure follow up with your Primary Doctor and Orthopedic surgeon Please use the oxycodone sparingly for moderate to severe pain as we discussed. It was a pleasure taking care of you Pending Studies at Discharge: No Stand-Alone Forms: My [facility], Smoking Cessation Medications and DC Order Prescriptions: New tizanidine 4 mg Tablet 4 mg PO TID 14 Days Qty: 42 0RF acetaminophen [Tylenol Extra Strength] 500 mg Tablet 1,000 mg PO TID 10 Days Qty: 60 0RF celecoxib [Celebrex] 200 mg Capsule 200 mg PO BID 14 Days Qty: 28 0RF gabapentin 100 mg Capsule 100 mg PO TID 14 Days Qty: 42 0RF sennosides-docusate sodium [Senokot-S] 8.6-50 mg Tablet 1 tab PO BID Qty: 10 0RF polyethylene glycol 3350 [Miralax] 17 gram Powder In Packet 17 g PO DAILY PRN (Reason: constipation) Qty: 14 0RF Continued duloxetine 30 mg Capsule,Delayed Release(Dr/Ec) 30 mg PO DAILY oxycodone 5 mg tablet 5 mg PO Q6H PRN (Reason: Pain) Qty: 15 0RF Discontinued ibuprofen 400 mg tablet 400 mg PO Q8H PRN (Reason: Pain) cyclobenzaprine 5 mg tablet 5 mg PO Q8H PRN (Reason: muscle spasms) Discharge Orders: Discharge Order (Routine); Ordered 04/14/25 Ordered By: Sofia Loo/Other Patient Handouts: Anatomy of a Normal Spine, ED Irritable Bowel Syndrome Admission Data Admit Date/Time: 04/12/25 22:39 Attending Provider: Sofia Chavira I. Admit Provider: Luis Walker Primary Care Provider: PCP,NO Other Providers: Bernardo Baker; Mickey Tabares Other Interventions: Discharge Summary Assessment (RN) Last Done: 04/14/25 13:33
== END 2025-04-14 14:53 | disposition home or self-care (01) ==
LOC: ED 13:30 → 3N 13:30 → SUATTDRO 22:39 → 3N 23:35